=== PATIENT | male | born 1970 | race Caucasian/White ===

== ENCOUNTER → 2017-01-14 | Outpatient (CLI) | payer BC ==
--- NOTE | 2017-01-14 11:53 | RAD ---
Examination: Chest x-ray. Clinical History: Venous thoracic outlet syndrome. Technique: PA and lateral views of the chest were obtained. Comparison: None available. Findings: A single lead pacemaker/defibrillator device is seen overlying the left hemithorax with the lead term inating in the right ventricle. The cardiac and mediastinal contours are within normal limits. No pneumothorax or pleural effusion is noted. The lungs appear clear. Mild degenerative changes are noted in the spine. No acute osseous abnormality is noted. Impression: 1. No acute disease. Reported By:
--- NOTE | 2017-01-14 15:20 | VAS ---
HISTORY: Extremity pain, swelling, and edema Study: Bilateral lower extremity Doppler venous ultrasound. TECHNIQUE: Multiple cullen scale and color flow Doppler images of the deep venous system were obtained of the right and left lower extremity. FINDINGS: The deep venous system of the right and left lower extremities were evaluated from the lev el of the common femoral veins through the popliteal veins, bilaterally. Normal color flow and augme ntation can be observed. In addition, normal compression is seen throughout the deep venous system. No Aglvan's cyst is seen. IMPRESSION: 1. Negative examination for DVT. Reported By:
--- NOTE | 2017-01-14 16:41 | VAS ---
Examination: Venous duplex Doppler ultrasound of the upper extremities bilaterally. Clinical History: History of subclavian clot. Technique: Duplex Doppler ultrasound utilizing nieto scale imaging and spectral analysis with color/du plex imaging was used to evaluate the deep venous systems of both upper extremities. Comparison: None available. Findings: There are nonocclusive thrombi involving the right subclavian, axillary, basilic and the jugular vein s. The right brachial and cephalic veins are not demonstrated. The left jugular, subclavian, axillary, brachial, cephalic and basilic veins show normal flow, with n ormal compression and augmentation where possible. There is no sonographic evidence of a deep venous thrombosis in the left upper extremity. Impression: 1. Nonocclusive deep venous thrombi involving the right upper extremity, as described above. 2. There is no sonographic evidence of a deep venous thrombosis in the left upper extremity. Reported By:
== END | disposition home or self-care (01) ==
LOC: RAD 10:03
PROVIDERS: ATTEND Nuclear Medicine Nuclear Cardiology
DX: G54.0 Brachial plexus disorders (principal)
CPT/HCPCS: 71020; 93970

== ENCOUNTER → 2017-02-01 | Outpatient (CLI) | payer BC | LOC: RT 14:39 | PROVIDERS: ATTEND Nuclear Medicine Nuclear Cardiology | DX: R20.0 Anesthesia of skin (principal) | CPT/HCPCS: 95909 ==

== ENCOUNTER 2023-02-16 12:21 | Observation (INO) ==
[2023-02-16] MEDS ORDERED: NS 1,000 ML IV 1,000 ML IV ONE (14:42)
[2023-02-16] MEDS ORDERED: ZOFRAN INJ 4 MG VIAL IVP PRN (14:42)
[2023-02-16 15:23] LABS: BASOPHILS # (AUTO) 0.1 X10^3/uL (0.0-0.1); BASOPHILS % (AUTO) 0.7 % (0.2-1.0); EOSINOPHILS # (AUTO) 0.2 x10^3/uL (0.0-0.2); EOSINOPHILS % (AUTO) 1.8 % (0.9-2.9); HEMATOCRIT 46.5 % (42.0-54.0); LYMPHOCYTES # (AUTO) 2.2 X10^3/uL (1.3-2.9); LYMPHOCYTES % (AUTO) 22.4 % (21.0-51.0); MEAN CORPUSCULAR HEMOGLOBIN 31.1 pg (27.0-34.0); MEAN CORPUSCULAR HGB CONC 34.4 g/dL (33.0-35.0); MEAN CORPUSCULAR VOLUME 90.5 fL (80.0-100.0); MEAN PLATELET VOLUME 7.2 fL (7.4-11.0); MONOCYTES # (AUTO) 0.8 x10^3/uL (0.3-0.8); NEUTROPHILS # (AUTO) 6.5 x10^3/uL (2.2-4.8); NEUTROPHILS % (AUTO) 67.1 % (42.0-75.0); PLATELET COUNT 239 X10^3/uL (150.0-450.0); RED BLOOD COUNT 5.14 X10^6/uL (4.7-6.0); RED CELL DISTRIBUTION WIDTH 13.6 % (11.6-16.5); WHITE BLOOD COUNT 9.6 X10^3/uL (3.6-10.0)
[2023-02-16 15:26] LABS: ERYTHROCYTE SEDIMENTATION RATE 14 MM/HOUR (0-15)
--- NOTE | 2023-02-16 15:32 | EKG ---
Test Reason : ARRHYTHIMIA Blood Pressure : */* mmHG Vent. Rate : 73 BPM Atrial Rate : 73 BPM P-R Int : 168 ms QRS Dur : 78 ms QT Int : 384 ms P-R-T Axes : 65 85 68 degrees QTc Int : 423 ms Normal sinus rhythm Normal ECG No previous ECGs available Confirmed by Abhinav Blanton ([id number]) on 02/17/2023 12:43:23 PM Referred By: Confirmed By: Abhinav Blanton
[2023-02-16 15:45] LABS: ALANINE AMINOTRANSFERASE 34 Units/L (12-78); ALKALINE PHOSPHATASE 88 Units/L (46-116); ASPARTATE AMINO TRANSFERASE 17 Units/L (15-37); BLOOD UREA NITROGEN 13 mg/dL (7-18); CALCIUM 8.9 mg/dL (8.5-10.1); CARBON DIOXIDE 31.3 mmol/L (21-32); CHLORIDE 99 mmol/L (98-107); CREATININE 1.21 mg/dL (0.70-1.30); FREE T4 (FREE THYROXINE) 0.72 ng/dL (0.76-1.46); GLUCOSE 88 mg/dL (65-99); MAGNESIUM 1.9 mg/dL (2.0-2.9); POTASSIUM 3.4 mmol/L (3.5-5.1); SODIUM 135 mmol/L (136-145); TOTAL PROTEIN 7.5 g/dL (6.4-8.2); TSH (3RD GENERATION) 1.732 uIU/mL (0.358-3.74); eGFR NON BLACK RACES > 60 (>60)
[2023-02-16 15:47] VITALS: BMI 27.3
[2023-02-16] MEDS: NS 1,000 ML IV 1,000 ML IV SCH (17:07)
[2023-02-16] MEDS ORDERED: CONSULT PHARMACY - POTASSIUM & MAGNESIUM XX SCH (19:00)
[2023-02-16] MEDS ORDERED: K-DUR TAB 20 MEQ PO ONE (19:00)
--- NOTE | 2023-02-16 19:41 | DR.H&P ---
H&P History & Physical for Day of: H&P Date: 02/16/23 Chief Complaint Chief Complaint: Lightheaded, Bradycardia, Hypotension Allergies Allergies Allergy/AdvReac Type Severity Reaction Status Date / Time No Known Drug Allergies Allergy Verified 02/16/23 15:18 [NKDA] History of Present Illness History of Present Illness: The patient is a 52yo WM who presents to [facility] with continued complaints of fatigue and lightheadedness. Patient had a near syncopal episode on 02/15/23 after coming from bathroom. states he was extremely pale. Initially was unable to obtain BP. On recheck, BP was 80/40 with pulse of 45. placed in Trendelenburg's and gave two Biolyte packets in bottle of water. Patient was transported to ER. BP had improved at that time. CTA was negative for PE. Patient has chronic history of recurrent DVTs and is followed by Dr Rider at [facility]. Patient has history of VTach with Defibrillator placed. Subsequently removed due to DVT. gives previous history of multiple short episodes of asystole. Patient states he feels off when he stands or or walks. States as long as he is sitting he is ok but has "fuzziness of brain." Patient denies active chest pain. Patient denies SOB or peripheral edema. 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, Venous thoracic outlet syndrome of left subclavian vein, Hx pulmonary embolus Past Surgical History Surgical History: Other (Defibrillator placement and removal, Venograms) Family History Family Medical History: [place] Social History Does patient currently use any type of tobacco product: Yes Have you used tobacco products in the last 12 months: Yes Type of Tobacco Use: None How many years tobacco product used: 35 Does any household member use tobacco: No Alcohol Use: None and Occasionally Medications Home Medications: Home Medications Medication Instructions Recorded Confirmed Type pantoprazole 40 mg tablet,delayed 40 mg PO DAILY 02/16/23 02/16/23 History release (Protonix) warfarin 2 mg tablet 2 mg PO DAILY 02/16/23 02/16/23 History Labs 02/16/23 15:10 02/16/23 15:10 Labs: Laboratory WBC 9.6 X10^3/uL (3.6-10.0) 02/16/23 15:10 RBC 5.14 X10^6/uL (4.7-6.0) 02/16/23 15:10 Hgb 16.0 g/dL (13.5-18.0) 02/16/23 15:10 Hct 46.5 % (42.0-54.0) 02/16/23 15:10 MCV 90.5 fL (80.0-100.0) 02/16/23 15:10 MCH 31.1 pg (27.0-34.0) 02/16/23 15:10 MCHC 34.4 g/dL (33.0-35.0) 02/16/23 15:10 RDW 13.6 % (11.6-16.5) 02/16/23 15:10 Plt Count 239 X10^3/uL (150.0-450.0) 02/16/23 15:10 MPV 7.2 fL (7.4-11.0) L 02/16/23 15:10 Neut % (Auto) 67.1 % (42.0-75.0) 02/16/23 15:10 Lymph % (Auto) 22.4 % (21.0-51.0) 02/16/23 15:10 [place] % (Auto) 8.0 % (0.0-13.0) 02/16/23 15:10 Eos % (Auto) 1.8 % (0.9-2.9) 02/16/23 15:10 Baso % (Auto) 0.7 % (0.2-1.0) 02/16/23 15:10 Neut # (Auto) 6.5 x10^3/uL (2.2-4.8) H 02/16/23 15:10 Lymph # (Auto) 2.2 X10^3/uL (1.3-2.9) 02/16/23 15:10 [place] # (Auto) 0.8 x10^3/uL (0.3-0.8) 02/16/23 15:10 Eos # (Auto) 0.2 x10^3/uL (0.0-0.2) 02/16/23 15:10 Baso # (Auto) 0.1 X10^3/uL (0.0-0.1) 02/16/23 15:10 Absolute Nucleated RBC 0.1 /100WBC 02/16/23 15:10 ESR 14 MM/HOUR (0-15) 02/16/23 15:10 D-Dimer < 0.27 ug/ml (0.0-0.57) 02/16/23 15:10 Sodium 135 mmol/L (136-145) L 02/16/23 15:10 Corrected Sodium TNP 02/16/23 15:10 Potassium 3.4 mmol/L (3.5-5.1) L 02/16/23 15:10 Chloride 99 mmol/L (98-107) 02/16/23 15:10 Carbon Dioxide 31.3 mmol/L (21-32) 02/16/23 15:10 BUN 13 mg/dL (7-18) 02/16/23 15:10 Creatinine 1.21 mg/dL (0.70-1.30) 02/16/23 15:10 Est GFR (MDRD) Af Amer > 60 (>60) 02/16/23 15:10 Est GFR (MDRD) Non-Af > 60 (>60) 02/16/23 15:10 Glucose 88 mg/dL (65-99) 02/16/23 15:10 Calcium 8.9 mg/dL (8.5-10.1) 02/16/23 15:10 Corrected Calcium TNP 02/16/23 15:10 Magnesium 1.9 mg/dL (2.0-2.9) L 02/16/23 15:10 Total Bilirubin 0.40 mg/dL (0.2-1.0) 02/16/23 15:10 AST 17 Units/L (15-37) 02/16/23 15:10 ALT 34 Units/L (12-78) 02/16/23 15:10 Alkaline Phosphatase 88 Units/L (46-116) 02/16/23 15:10 Troponin I High Sens < 4.0 ng/L (4.0-60.0) L 02/16/23 15:10 C-Reactive Protein 1.30 mg/L (0-3.0) 02/16/23 15:10 Total Protein 7.5 g/dL (6.4-8.2) 02/16/23 15:10 Albumin 4.0 g/dL (3.4-5.0) 02/16/23 15:10 Globulin 3.5 g/dL (2.5-4.5) 02/16/23 15:10 Albumin/Globulin Ratio 1.1 Ratio (1.1-2.1) 02/16/23 15:10 Free T4 0.72 ng/dL (0.76-1.46) L 02/16/23 15:10 TSH 3rd Generation 1.732 uIU/mL (0.358-3.74) 02/16/23 15:10 Review of Systems Constitutional: Weakness and Malaise Eyes: No Symptoms Reported ENT: No Symptoms Reported Respiratory: No Symptoms Reported Cardiovascular: See HPI and Light Headedness Gastrointestinal: No Symptoms Reported Genitourinary: No Symptoms Reported Musculoskeletal: No Symptoms Reported Skin: No Symptoms Reported Neurological: See HPI Physical Exam Vital Signs: Vital Signs Temperature 98.0 F Pulse Rate [Right Brachial] 65 Pulse Rate [Right Brachial] 86 Respiratory Rate 18 Blood Pressure [Right Arm] 127/77 Blood Pressure [Right Arm] 119/75 O2 Sat by Pulse Oximetry 99 Oriented: Normal, Time, Person and Place Eyes: Normal Ear: Normal Nose: Normal Throat: Normal Respiratory: Clear Throughout Cardiovascular: Normal : Normal Auscultation: Bowel Sounds: Normal Palpation: Normal Tenderness: Normal Skin: Normal Musculoskeletal: Knee, Tender and Crepitance Psychiatric: Normal Mood Description: Calm Affect: Flat and Quiet Speech Pattern: Clear Assessment/Plan (1) Near syncope: Narrative Support Text: Monitor labs, vital signs, telemetry. Transfer to [facility] for EP work up Status: Acute (2) History of ventricular tachycardia: Narrative Support Text: Monitor labs, vital signs, telemetry. Transfer to [facility] for EP work up Status: Acute (3) Hypotension: Narrative Support Text: Monitor labs, vital signs, telemetry. Transfer to [facility] for EP work up Status: Acute Review H&P Reviewed: Yes Patient was examined?: Yes
--- NOTE | 2023-02-16 19:55 | RAD ---
EXAM: CHEST X-RAYHISTORY: Chest pain.TECHNIQUE: PA and lateral chest x-ray.COMPARISON: None available.FINDINGS:The heart size and mediastinum are within normal limits. The lung guaman and costophrenic angles are clear. There is no acute parenchymal infiltrate, pleural effusion, or pneumothorax seen. The visualized bony structures are within normal limits.IMPRESSION:1. No evidence for acute cardiopulmonary disease seen.2. No evidence for acute tuberculosis or other communicable diseases.THIS IS AN ELECTRONICALLY VERIFIED FINAL [id number]/2023 7:52 PM - Electronically signed by Chirag Chester
[2023-02-16] MEDS: MAG-OX TAB PO SCH ×2 (20:29→22:10)
--- NOTE | 2023-02-16 20:53 | EKG ---
Test Reason : ARRHYTHIMIA Blood Pressure : */* mmHG Vent. Rate : 68 BPM Atrial Rate : 68 BPM P-R Int : 176 ms QRS Dur : 76 ms QT Int : 410 ms P-R-T Axes : 63 87 63 degrees QTc Int : 435 ms Normal sinus rhythm Normal ECG When compared with ECG of 16-FEB-2023 15:22, (Unconfirmed) No significant change was found Confirmed by Mikey Croko MD ([id number]) on 02/17/2023 7:39:31 AM Referred By: Confirmed By: Mikey Crook MD
[2023-02-17 01:30] LABS: BILIRUBIN,URINE NEGATIVE (NEGATIVE); BLOOD/HEMOGLOBIN,URINE 2+ (NEGATIVE); GLUCOSE, URINE NEGATIVE (NEGATIVE); KETONES,URINE NEGATIVE (NEGATIVE); LEUKOCYTE ESTERASE ,URINE NEGATIVE (NEGATIVE); NITRITES,URINE NEGATIVE (NEGATIVE); PROTEIN,URINE 1+ (NEGATIVE); UROBILINOGEN,URINE NORMAL (NORMAL)
[2023-02-17 01:37] LABS: APPEARANCE,URINE CLEAR (CLEAR); COLOR,URINE DARK YELLOW (YELLOW)
[2023-02-17 01:38] LABS: BACTERIA,URINE TRACE /HPF (NEGATIVE); CALCIUM OXALATE CRYSTALS,UR FEW /HPF (NEGATIVE); SQUAMOUS EPITHELIAL CELL,UR RARE /HPF (NEGATIVE)
--- NOTE | 2023-02-17 02:36 | EKG ---
Test Reason : ARRHYTHIMIA Blood Pressure : */* mmHG Vent. Rate : 60 BPM Atrial Rate : 60 BPM P-R Int : 184 ms QRS Dur : 74 ms QT Int : 440 ms P-R-T Axes : 60 83 69 degrees QTc Int : 440 ms Normal sinus rhythm with sinus arrhythmia Normal ECG When compared with ECG of 16-FEB-2023 20:33, (Unconfirmed) No significant change was found Confirmed by Mikey Crook MD ([id number]) on 02/17/2023 7:39:20 AM Referred By: Confirmed By: Mikey Crook MD
[2023-02-17 03:22] LABS: BASOPHILS # (AUTO) 0.1 X10^3/uL (0.0-0.1); BASOPHILS % (AUTO) 1.8 % (0.2-1.0); EOSINOPHILS # (AUTO) 0.3 x10^3/uL (0.0-0.2); EOSINOPHILS % (AUTO) 3.9 % (0.9-2.9); HEMATOCRIT 43.9 % (42.0-54.0); HEMOGLOBIN 14.9 g/dL (13.5-18.0); LYMPHOCYTES # (AUTO) 2.6 X10^3/uL (1.3-2.9); LYMPHOCYTES % (AUTO) 36.7 % (21.0-51.0); MEAN CORPUSCULAR HEMOGLOBIN 30.9 pg (27.0-34.0); MEAN CORPUSCULAR HGB CONC 33.9 g/dL (33.0-35.0); MEAN CORPUSCULAR VOLUME 91.1 fL (80.0-100.0); MEAN PLATELET VOLUME 7.5 fL (7.4-11.0); MONOCYTES # (AUTO) 0.6 x10^3/uL (0.3-0.8); MONOCYTES % (AUTO) 8.5 % (0.0-13.0); NEUTROPHILS # (AUTO) 3.5 x10^3/uL (2.2-4.8); NEUTROPHILS % (AUTO) 49.1 % (42.0-75.0); PLATELET COUNT 235 X10^3/uL (150.0-450.0); RED BLOOD COUNT 4.81 X10^6/uL (4.7-6.0); RED CELL DISTRIBUTION WIDTH 13.8 % (11.6-16.5); WHITE BLOOD COUNT 7.1 X10^3/uL (3.6-10.0)
[2023-02-17 03:40] LABS: ALANINE AMINOTRANSFERASE 31 Units/L (12-78); ALBUMIN 3.3 g/dL (3.4-5.0); ALKALINE PHOSPHATASE 86 Units/L (46-116); ASPARTATE AMINO TRANSFERASE 19 Units/L (15-37); BLOOD UREA NITROGEN 13 mg/dL (7-18); CARBON DIOXIDE 27.8 mmol/L (21-32); CHLORIDE 102 mmol/L (98-107); COR CA(FOR HYPOALB) 8.6 mg/dL (8.5-10.1); CREATININE 1.06 mg/dL (0.70-1.30); GLUCOSE 105 mg/dL (65-99); MAGNESIUM 1.9 mg/dL (2.0-2.9); POTASSIUM 3.9 mmol/L (3.5-5.1); SODIUM 135 mmol/L (136-145); TOTAL PROTEIN 6.5 g/dL (6.4-8.2); eGFR NON BLACK RACES > 60 (>60)
[2023-02-17] MEDS ORDERED: K-DUR TAB 20 MEQ PO SCH (05:00)
[2023-02-17] MEDS ORDERED: MAG-OX TAB PO SCH (05:00)
[2023-02-17] MEDS ORDERED: CONSULT PHARMACY - POTASSIUM & MAGNESIUM XX SCH (05:00)
[2023-02-17 08:28] VITALS: RESP 18
[2023-02-17 12:14] VITALS: TEMP 97.8
[2023-02-17] MEDS: NS 1,000 ML IV 1,000 ML IV SCH (15:07)
[2023-02-17 16:10] VITALS: BP 112/66; PULSE 58; O2SAT 95
== END 2023-02-17 16:35 | disposition short-term general hospital (02) ==
LOC: MED/SURG
PROVIDERS: ADMIT Internal Medicine; ATTEND Internal Medicine